=== PATIENT | male | born 1990 | race African-American/Black ===

== ENCOUNTER 2017-02-03 08:45 | Emergency (ER) | payer OTHER ==
[~2017-02-03] VITALS: Ht 177.8 cm; Wt 83.9 kg
--- NOTE | ~2017-02-03 | MY26 ---
[facility] A Service of [facility] & [facility] RADIOLOGY TEXT RESULTS PATIENT: HEATHER BOWDEN LOCATION: [facility] : [birth year] UNIT #: [id number] AGE: [address]: Rhett Christianson SEX: M ORDER DR: [id number] [place] [id number] [facility]. [place], [place] [address] [id number] E MR#: [id number] Acc #: [id number] NAME: HEATHER BOWDEN : 1990 SEX: M STUDY DATE/TIME: 02/03/2017 12:08 UNIT: TX ROOM: STUDY DESCRIPTION: [facility] DIAGNOSTIC W/ CAD BILAT Attending Physician: Rhett Christianson R.N. Ordering Physician: Rhett Christianson R.N. MEDICAL IMAGING REPORT This report is preliminary unless electronic signature is present EXAM Bilateral digital diagnostic mammogram with CAD COMPARISON Bilateral breast ultrasound the same date. HISTORY 26-year-old male with complaint of a tender subareolar right breast lump for approximately 1.5 months. Denies personal or family history of breast cancer. FINDINGS Bilateral CC and MLO views were obtained, in addition to spot compression CC and MLO views of the left breast. In the right breast, there is extensive gynecomastia. In the right breast, the breast tissue is heterogeneously dense, which may obscure detection of small masses. There is no suspicious mammographic finding in the right breast. In the left breast, there are scattered fibroglandular densities and in the subareolar location, there is a flame-shaped island of fibroglandular tissue. Superiorly at approximately the 12 o'clock position, there is a focal asymmetry located approximately 2 cm from the left nipple measuring up to as much as 1.1 cm. There is also favored to represent normal breast tissue but sonographic evaluation is indicated to further characterize. Sonographic evaluation performed throughout the subareolar to 12 o'clock positions of the left breast which is significant for an island of fibroglandular tissue. There is no discrete sonographic mass confirming a diagnosis of gynecomastia. Given patient concern about the right breast, sonographic evaluation was performed in the subareolar location demonstrating identical-appearing island of fibroglandular tissue which is slightly larger than the left side, consistent with the findings on mammography and on visual inspection of the breasts. There are no suspicious skin changes of either breast. There is no discrete palpable STS. [facility] A Service of [facility] / [facility] RADIOLOGY TEXT RESULTS PATIENT: HEATHER BOWDEN LOCATION: [facility] : [birth year] UNIT #: [id number] AGE: [address]: Rhett Christianson SEX: M ORDER DR: mass in either subareolar breast. IMPRESSION No mammographic or sonographic evidence of malignancy in either breast. Findings are consistent with extensive gynecomastia in the right breast with [id number] left breast gynecomastia. Patient was counseled on etiologies of gynecomastia and the sooner an etiology can be found, the more likely it would be reversible. Given the mammographic appearance, even if an offending agent is discovered, it would be unlikely to produce resolution of the gynecomastia with cessation or medical treatment. Therefore, outpatient surgical consultation is recommended. Also, if an offending etiology is not ascertained, correlation with serum estrogen and testosterone levels is recommended. There are some hormone secreting tumors that could potentially cause gynecomastia. Findings and recommendations were discussed with the patient upon termination of today's exam. BIRADS: 2 Benign Finding. Dictated by... Beto Baumann M.D. THIS IS AN ELECTRONICALLY VERIFIED REPORT Beto Baumann M.D. at 02/11/2017 2:55 AM VETO/werner TD: 02/03/2017 18:50 JOB #: [id number] MEDICAL IMAGING REPORT Page 1 of 1 COPY
--- NOTE | ~2017-02-03 | US24 ---
[facility] A Service of [facility] & [facility] RADIOLOGY TEXT RESULTS PATIENT: HEATHER BOWDEN LOCATION: [facility] : [birth year] UNIT #: [id number] AGE: [address]: Rhett Christianson SEX: M ORDER DR: [id number] [facility] [address] [facility]. [place], [place] [address] [id number] E MR#: [id number] Acc #: [id number] NAME: HEATHER BOWDEN : 1990 SEX: M STUDY DATE/TIME: 02/03/2017 12:36 UNIT: [facility] ROOM: STUDY DESCRIPTION: US Breast Unilateral Attending Physician: Rhett Christianson R.N. Ordering Physician: Rhett Christianson R.N. Primary Care Physician: No Primary Care Physician MEDICAL IMAGING REPORT This report is preliminary unless electronic signature is present EXAM Bilateral breast ultrasound. COMPARISON Bilateral diagnostic mammogram on the same date. INDICATION 26-year-old male with painful subareolar right breast lump as well as a focal asymmetry in the 12 o'clock anterior third of the left breast on diagnostic mammography today. Additional imaging evaluation of both breasts was indicated. FINDINGS/IMPRESSION Please see separately dictated report of bilateral diagnostic mammography on the same date for full sonographic findings in both breasts today as well as final impression and recommendations. BIRADS: 2 Benign finding. Dictated by... Beto Baumann M.D. THIS IS AN ELECTRONICALLY VERIFIED REPORT Beto Baumann M.D. at 02/11/2017 2:39 AM Raghu TD: 02/04/2017 03:48 JOB #: [id number] MEDICAL IMAGING REPORT Page 1 of 1 COPY
[~2017-02-03 08:45] MED LIST: BACTRIM DS TABL1 TAB PO; IBUPROFEN PO; MOTRIN50 MG PO
== END 2017-02-03 14:29 | disposition home or self-care (01) ==
LOC: CED 08:45 → CFTX 08:45 → CED 09:23 → CFTX 09:23
DX: H10.32 Unspecified acute conjunctivitis, left eye (principal); N62 Hypertrophy of breast; F17.210 Nicotine dependence, cigarettes, uncomplicated
CPT/HCPCS: 76641; 99284; G0204